=== PATIENT | female | born 1975 | race Caucasian/White ===

== ENCOUNTER 2016-09-29 09:54 | Emergency (ER) | payer OTHER ==
[2016-09-29] MEDS ORDERED: diphenhydrAMINE HCl 50 MG/ML 1 ML VIAL ONE ×2 (10:17→10:43)
[2016-09-29] MEDS ORDERED: Prochlorperazine 10 MG/2 ML VIAL ONE (10:17)
[2016-09-29] MEDS ORDERED: Ketorolac Tromethamine 30 MG/ML VIAL ONE (10:17)
[2016-09-29] MEDS ORDERED: Sodium Chloride 0.9% 1,000 ML ONE (10:17)
== END 2016-09-29 11:00 | disposition home or self-care (01) ==
LOC: NAV ERS 09:54
DX: G43.909 Migraine, unspecified, not intractable, without status migrainosus (principal); F32.9 Major depressive disorder, single episode, unspecified; F41.9 Anxiety disorder, unspecified; Z79.899 Other long term (current) drug therapy
CPT/HCPCS: 96361; 96374; 96375; J0780; J1200; J1885; J7050